=== PATIENT | female | born 1970 | race Caucasian/White ===

== ENCOUNTER → 2018-07-21 | Outpatient (CLI) | payer OTHER | LOC: M.MRI 11:13 | DX: R25.1 Tremor, unspecified (principal); R51 Headache ==

== ENCOUNTER → 2018-08-30 | Outpatient (CLI) | payer OTHER | LOC: M.ULTRA 07:07 | DX: R10.13 Epigastric pain (principal) ==

== ENCOUNTER → 2018-09-14 | Outpatient (CLI) | payer OTHER | LOC: M.NUC 07:21 | DX: R10.84 Generalized abdominal pain (principal); N89.8 Other specified noninflammatory disorders of vagina ==

== ENCOUNTER → 2018-09-25 | Day surgery (SDC) | payer OTHER ==
[~2018-09-25] MED LIST: ASPIRIN81 M2 PO; BLISOVI FE 1-21 EACH PO; BYSTOLIC10 MG PO; NORCO 5-325 TA1 EACH PO; SYNTHROID50 MCG PO
--- NOTE | ~2018-09-25 | OP ---
[facility] [address] [place] [address] OPERATIVE REPORT Name: HILDA MEYERS Room: [facility].#: [id number] Admission: 09/25/18 Attend Phys: Robe Kraus Discharge: Date of : 66 Report #: [id number] THIS REPORT FOR: //name// CC: Robe Kraus Halima Harper DATE OF SERVICE: 09/25/2018 PREOPERATIVE DIAGNOSIS: Biliary dyskinesia. POSTOPERATIVE DIAGNOSIS: Biliary dyskinesia. OPERATION: Laparoscopic cholecystectomy. SURGEON: Robe Kraus MD ANESTHESIA: General. ESTIMATED BLOOD LOSS: Minimal. SPECIMENS: Gallbladder. DESCRIPTION OF PROCEDURE: After informed consent was obtained, the patient was brought to the operating room and placed supine. SCDs were placed and working. Preoperative antibiotics were administered, general anesthesia was induced. The abdomen was prepped and draped in the usual sterile fashion. A 10 mm incision was made below the umbilicus. Fascia was incised and a trocar was placed. Pneumoperitoneum was established. Three right upper quadrant 5 mm ports were placed. Gallbladder was grasped at the fundus and retracted cephalad. Infundibulum was grasped and retracted laterally. I dissected out the cystic duct and cystic artery. Cystic plate was identified. The cystic duct and artery were clipped and ligated leaving 2 clips on the remaining duct and one on the main artery. The gallbladder was then taken off the liver bed with electrocautery. It was placed into an Endopouch and removed. The fascia was then reapproximated with a [id number] 0 Vicryl. Skin was closed with 4-0 Monocryl. Incisions were sealed with Dermabond. COMPLICATIONS: None. DISPOSITION: The patient was taken to Recovery in satisfactory condition. By: [id number] Kraus MD /nt
[2018-09-25 06:40] LABS: HEMATOCRIT 36.8 % (37.0-47.0); HEMOGLOBIN 12.5 gm/dL (12.0-15.0); MCH 31.5 pg (26.0-34.0); MCHC 33.9 g/dL (28.0-37.0); MCV 92.9 fL (80.0-100.0); MPV 7.2 fl. (7.2-11.1); RBC 3.96 mil/uL (4.20-5.00); RDW-CV 12.2 % (10.5-14.5); WBC 5.7 thou/uL (4.0-11.0)
[2018-09-25 06:58] LABS: CALCIUM 8.3 mg/dL (8.5-10.1); CREATININE 0.9 mg/dL (0.6-1.3); POTASSIUM 3.7 mmol/L (3.5-5.1)
[2018-09-25 07:03] LABS: ALBUMIN 3.4 g/dL (3.4-5.0); TOTAL BILIRUBIN 0.2 mg/dL (<0.1-1.0); TOTAL PROTEIN 7.1 g/dL (6.4-8.2)
--- NOTE | 2018-09-25 13:45 | EKG ---
[place] [address] ELECTROCARDIOGRAM REPORT Name: HILDA MEYERS Room: [facility].#: [id number] Admission: 09/25/18 Attend Phys: Robe Kraus Discharge: Date of : 66 Report #: [id number] THIS REPORT FOR: //name// [facility] Test Date: 2018-09-25 Test Time: 06:39:17 Pat Name: HILDA MEYERS Department: Room: Gender: F Environment Coordinator: SHARAN : 1970 Requested By: Robe Kraus Order Number: [id number] MD: Haris Solano Measurements Intervals [place] Rate: 59 P: 64 [place]: 177 QRS: 21 QRSD: 88 T: 27 QT: 437 QTc: 433 Interpretive Statements Sinus rhythm Abnormal R-wave progression, early transition Baseline wander in lead(s) II,III,aVF No previous ECG available for comparison Electronically Signed On 09-25-2018 13:44:59 [employer] DIRECTOR by Haris Solano [email or web address] <ELECTRONICALLY SIGNED> By: Haris Solano MD, [facility] 09/25/18 1344 Haris Solano MD, FAC /EPI
== END | disposition home or self-care (01) ==
LOC: M.SUR 06:08
PROVIDERS: Surgery
DX: K82.8 Other specified diseases of gallbladder (principal); Z88.0 Allergy status to penicillin; Z88.2 Allergy status to sulfonamides; Z79.899 Other long term (current) drug therapy; Z79.891 Long term (current) use of opiate analgesic